=== PATIENT | male | born 1965 | race Caucasian/White ===

== ENCOUNTER 2024-01-14 23:07 | Emergency (ER) | payer BC, SELFPAY ==
[2024-01-14 23:23] VITALS: BP 159/110
[2024-01-14 23:30] VITALS: BMI 26.8
[2024-01-15] VITALS: BP 119/79
[2024-01-15 00:15] LABS: % Basophils 0.8 % (0-2); % Eosinophils 1.9 % (0-6); % Immature Granulocytes 0.3 % (0-0.5); % Lymphocytes 28.5 % (20.5-51.1); % Monocytes 10.5 % (1.7-9.3); Absolute Basophils 0.1 10^3/uL (0-0.2); Absolute Eosinophils 0.1 10^3/uL (0-0.7); Absolute Lymphocytes 1.8 10^3/uL (1.2-3.4); Absolute Monocytes 0.7 10^3/uL (0.1-0.6); Absolute Neutrophils 3.6 10^3/uL (1.4-6.5); Hematocrit 39.5 % (39.0-52.0); Hemoglobin 13.8 g/dL (13.0-18.0); Mean Corp Hgb Conc. 34.9 g/dL (33.0-37.0); Mean Corpuscular Hgb 32.1 pg (27.0-31.0); Mean Corpuscular Volume 91.9 fL (80.0-94.0); Mean Platelet Volume 9.8 fL (7.4-10.4); Nucleated Red Blood Cells % 0 % (-); Platelet Count 187 10^3/uL (130-400); Red Cell Dist. Width 13.1 % (11.5-14.5); White Blood Cell Count 6.2 10^3/uL (4.8-10.8)
[2024-01-15 00:29] LABS: ALT (SGPT) 31 U/L (0-50); AST (SGOT) 31 U/L (17-59); Alkaline Phosphatase 43 U/L (38-126); Blood Urea Nitrogen 31 mg/dl (9-20); Calcium 9.9 mg/dl (8.4-10.2); Carbon Dioxide 16 mmol/L (22-30); Chloride 108 mmol/L (98-107); Estimated Creatinine Clearance 56 ml/min; Glucose 113 mg/dl (70-99); Potassium 3.8 mmol/L (3.5-5.1); Sodium 143 mmol/L (135-145); Total Bilirubin 0.5 mg/dl (0.2-1.3); Total Protein 6.6 g/dl (6.3-8.2); eGFR 52.97
[2024-01-15] MEDS: CARDIZEM 20 MG IV (00:30)
--- NOTE | 2024-01-15 00:31 | ED.GENMED ---
History of Present Illness
<CAIRRA Frank - Last Filed: 01/15/24 02:37>
General
Chief Complaint: Heart Rate Problem
Source: patient
Exam Limitations: none
Time Seen by Provider: 01/15/24 00:17
Nursing documentation reviewed up to this point in time: agreed with
History of Present Illness
History of Present Illness:
Patient is a 58yo M w/ MH of a fib and HTN presents to ED w/ palpations x45 mins. Pt was woken up after 1 hr of sleep by chest pain and palpations. Report pressure in chest that is radiating down B/L arms. Rates /. Reports associated SOB and
nausea. Reports similar symptoms in past w/ previous a fib episodes. Has been well-controlled w/ flecainide for 5 yrs. Reports taking meds as directed. Denies any new activities in past week. Has URI about 2 weeks ago.
Past History
<CIARRA Frank - Last Filed: 01/15/24 02:37>
Past History
ED Past Medical History: HTN, Hypercholesterolemia, Renal failure (Status post renal transplant) and Other (Chronic kidney disease, diverticulitis)
ED Past Surgical History: Appendectomy and Other (Renal transplantation 2005)
Social History
Tobacco: Non-smoker
Alcohol: Daily (wine)
Drug: None
Personal:
Living: with family
Employment: Employed
Family History
Family History: Hypertension and Other (Father with diverticulitis)
Review of Systems
<CIARRA Frank - Last Filed: 01/15/24 02:37>
Review of Systems
Constitutional: Denies fever, fatigue or chills
EENT: Denies sore throat or runny nose
Respiratory: Reports trouble breathing; Denies cough
Cardiac: Reports chest pain and palpitations; Denies diaphoresis or syncope
ABD/GI: Reports nausea; Denies abdominal pain, vomiting, diarrhea or constipated
: Denies dysuria
Musculoskeletal: Denies joint pain, joint swelling, muscle pain, muscle stiffness, neck pain or back pain
Neurological: Denies dizzy, headache, weakness or numbness
Phy Exam
<Cinthia Justice [facility] Filed: 01/15/24 02:37>
General Physical Exam
General Presentation: moderate distress
General age: appears stated age
General Skin: warm and dry
General Habitus: normal
General Mental: alert
Eye Exam
Eye Exam: PERRL
Cardiovascular Exam
Cardiovascular Exam: no edema, no gallop, no murmur and irregularly irregular
Pulmonary Exam
Pulmonary Exam: lungs clear, no respiratory distress, no rales, no crackles, no rhonchi and no wheezing
Neurological Exam
Neurological Exam: alert, oriented x3 and speech normal
Course
<Cinthia Justice [facility] - Last Filed: 01/15/24 02:37>
Orders/Labs/Results
Orders:
Orders
01/14/24 23:08
Electrocardiogram (*1) Urgent
Reason for Study: Palpitations
EKG- Treatment ONCE
Complete Blood Count/With Diff Urgent
Comprehensive Metabolic Panel Urgent
01/15/24 00:27
Diltiazem HCl [Cardizem] 20 mg IV NOW STA
01/15/24 00:30
Diltiazem 125 mg/125 ml Nss [Cardizem] 125 mg in 125 ml IV PER PROTOCOL
Initial dose in mg/hr, then titrate:: 5
Titrate to keep:: Heart rate 80-100 bpm
Titrate by mg/hr:: 5 mg/hr
Frequency of titrations (minutes):: 15
Maximum dose in mg/hr:: 15
01/15/24 01:01
Propofol [Diprivan] 20 ml .ROUTE .STK-MED
01/15/24 01:34
ECG [Electrocardiogram (*1)] Urgent
Reason for Study: Atrial Fibrillation
01/15/24 01:35
EKG- Treatment ONCE
Abnormal Lab Results
01/15/24
00:10
RBC 4.30 L 10^6/uL
(4.70-6.10)
MCH 32.1 H pg
(27.0-31.0)
Absolute Monos (auto) 0.7 H 10^3/uL
(0.1-0.6)
Monocytes % 10.5 H %
(1.7-9.3)
Chloride 108 H mmol/L
(98-107)
Carbon Dioxide 16 L mmol/L
(22-30)
BUN 31 H mg/dl
(9-20)
Creatinine 1.5 H mg/dL
(0.7-1.3)
Glucose 113 H mg/dl
(70-99)
01/15/24 00:10
01/15/24 00:10
Vital Signs
Initial and Last Documented VS:
Initial Vital Signs
Temp Pulse Resp Pulse Ox
97.6 F 157 26 98
01/14/24 23:16 01/14/24 23:16 01/14/24 23:16 01/14/24 23:16
Last Documented Vital Signs
Temp Pulse Resp BP Pulse Ox
97.6 F 73 17 108/78 93
01/14/24 23:16 01/15/24 02:00 01/15/24 02:00 01/15/24 02:00 01/15/24 02:00
<Froylan Ochoa, DO - Last Filed: 01/15/24 02:00>
Orders/Labs/Results
Orders:
Orders
01/14/24 23:08
Electrocardiogram (*1) Urgent
Reason for Study: Palpitations
EKG- Treatment ONCE
Complete Blood Count/With Diff Urgent
Comprehensive Metabolic Panel Urgent
01/15/24 00:27
Diltiazem HCl [Cardizem] 20 mg IV NOW STA
01/15/24 00:30
Diltiazem 125 mg/125 ml Nss [Cardizem] 125 mg in 125 ml IV PER PROTOCOL
Initial dose in mg/hr, then titrate:: 5
Titrate to keep:: Heart rate 80-100 bpm
Titrate by mg/hr:: 5 mg/hr
Frequency of titrations (minutes):: 15
Maximum dose in mg/hr:: 15
01/15/24 01:01
Propofol [Diprivan] 20 ml .ROUTE .STK-MED
01/15/24 01:34
ECG [Electrocardiogram (*1)] Urgent
Reason for Study: Atrial Fibrillation
01/15/24 01:35
EKG- Treatment ONCE
Abnormal Lab Results
01/15/24
00:10
RBC 4.30 L 10^6/uL
(4.70-6.10)
MCH 32.1 H pg
(27.0-31.0)
Absolute Monos (auto) 0.7 H 10^3/uL
(0.1-0.6)
Monocytes % 10.5 H %
(1.7-9.3)
Chloride 108 H mmol/L
(98-107)
Carbon Dioxide 16 L mmol/L
(22-30)
BUN 31 H mg/dl
(9-20)
Creatinine 1.5 H mg/dL
(0.7-1.3)
Glucose 113 H mg/dl
(70-99)
01/15/24 00:10
01/15/24 00:10
Vital Signs
Initial and Last Documented VS:
Initial Vital Signs
Temp Pulse Resp Pulse Ox
97.6 F 157 26 98
01/14/24 23:16 01/14/24 23:16 01/14/24 23:16 01/14/24 23:16
Last Documented Vital Signs
Temp Pulse Resp BP Pulse Ox
97.6 F 73 17 108/78 93
01/14/24 23:16 01/15/24 02:00 01/15/24 02:00 01/15/24 02:00 01/15/24 02:00
<CIARRA Frank - Last Filed: 01/15/24 02:37>
MDM/Problems Addressed
Differential Diagnosis Includes:
a fib, ND, ACS
<CIARRA Frank - Last Filed: 01/15/24 02:37>
*Critical Care Note
Total Time (30-74mins, 75-104mins- exclusive of procedures): Not Applicable
<Froylan Ochoa DO - Last Filed: 01/15/24 02:00>
Update Note
Update Note:
Patient spontaneously cardioverted. He is in normal sinus rhythm and in no acute distress at this time. We did not perform any procedures. We did give him Cardizem. He did sign consent for procedure that we did not have to perform
ED Attending Note
<CIARRA Frank - Last Filed: 01/15/24 02:37>
-
Portions of this chart may have been created with voice recognition software.� Occasional wrong word or��sound alike� substitutions may have occurred due to the inherent limitations of voice recognition software.
<Froylan Ochoa DO - Last Filed: 01/15/24 02:00>
ED Attending Note
Patient seen and examined by attending physician: Yes
I performed the substantive portion of visit, reviewed & personally made and approve the management plan that is documented in note by myself or ANASTACIA.: Yes
ED Attending Note:
Pleasant 58-year-old male that presents with atrial fibrillation with rapid ventricular response. He does see Dr. Galindo for A-fib and has been on Eliquis. He has not missed any doses. He states about 45 minutes prior to his arrival in the
emergency department he felt palpitations and shortness of breath. He states that this feels like his atrial fibrillation. He has undergone synchronized cardioversion in the past. Patient was seen in conjunction with the PA student. I have
reviewed and agree with the history and treatment plan presented. On my independent physical exam, patient is awake, alert, and oriented x3. Heart is irregularly irregular. Lungs are clear to auscultation bilaterally. Skin is warm and dry.
Moves all 4 extremities. Patient is mentating appropriately.
EKG shows atrial fibrillation with rapid ventricular response. Ventricular rate is 135. No evidence of acute ischemia present.
Patient signed consent and agreed to synchronized cardioversion. He did have a course of Cardizem.
Discharge Plan
Departure
Patient Disposition: Home (Routine Discharge)
Date of Disposition: 01/15/24
Time of Disposition: 01:53
Patient with high blood pressure during this ER visit?: Yes
Condition: Good
Discharge Problem:
Atrial fibrillation with rapid ventricular response
Instructions: Atrial Fibrillation (DC), Palpitations (DC), BLOOD PRESSURE
Prescriptions:
No Action
mycophenolate sodium [Myfortic] 180 MG tablet,delayed release (DR/EC)
180 mg PO BID
labetalol 200 MG tablet
400 mg PO BID
prednisone 5 MG tablet
5 mg PO DAILY
terazosin 5 MG capsule
5 mg PO HS
Eliquis 5 MG tablet
5 mg PO BID Qty: 60 3RF
flecainide 50 MG tablet
50 mg PO HS
pravastatin 20 mg tablet
20 mg PO DAILY
tacrolimus 0.5 mg capsule
2 mg PO DAILY
tacrolimus 0.5 mg capsule
1.5 mg PO QPM
cefpodoxime 200 mg tablet
200 mg PO BID 10 Days Qty: 20 0RF
Referrals:
Que Friedman PA-C [Family Provider] -
Jovi Galindo MD [Active] -
Activity Restrictions/Additional Instructions:
It was a pleasure meeting you and taking part in your care. We hope for your continued healing and wellness.
Please read discharge instructions in their entirety. However, they are for general education and may not describe your exact diagnosis at discharge. Information on your ER visit and medical conditions were discussed with you along with appropriate
follow up information...
If indicated, please take your medications as instructed and indicated on discharge paperwork.
Please schedule a follow up appointment as directed. Call to schedule an appointment
Please return to the emergency department with ANY change in, persisting, or worsening of symptoms. If any of your symptoms do not improve, or persist, or become more severe within 6-12 hours, please return to the emergency department for further
care.
Please return to the emergency department if you develop a headache, neck pain/stiffness, fever greater than 100.4F, chest pain, shortness of breath, persistent nausea, vomiting, slurred speech, difficulty walking, numbness/tingling, weakness, signs
of infection or any other symptoms that are worrisome to you.
If you have any questions or concerns please do not hesitate to call the Hospital at or E-mail me directly at [email or web address]
Interventions
Interventions:
*Risk Screen - Suicide Last Done: 01/14/24 23:16
*General Assessment Last Done: 01/14/24 23:16
*Neglect/Abuse Screening Last Done: 01/14/24 23:16
*Nursing Disposition Last Done: 01/15/24 02:31
ED- Cardiac Assessment Last Done: 01/14/24 23:31
ED- Pulmonary Assessment Last Done: 01/14/24 23:31
Discharge Date and Time
Print Language: SAMI
[2024-01-15 00:34] VITALS: BP 85/59
[2024-01-15 00:37] VITALS: BP 95/72
[2024-01-15] MEDS: CARDIZEM 125 IV (00:37)
[2024-01-15 01:00] VITALS: BP 96/79
[2024-01-15 02:00] VITALS: BP 108/78
== END 2024-01-15 02:48 | disposition home or self-care (01) ==
LOC: EMR 23:07
PROVIDERS: EMERGENCY PHYSICIAN Student in an Organized Health Care Education/Training Program; FAMILY PHYSICIAN Physician Assistant Medical
DX: R00.2 Palpitations (principal); I48.91 Unspecified atrial fibrillation; I12.9 Hypertensive chronic kidney disease with stage 1 through stage 4 chronic kidney disease, or unspecified chronic kidney disease; N18.9 Chronic kidney disease, unspecified; E78.00 Pure hypercholesterolemia, unspecified; Z82.49 Family history of ischemic heart disease and other diseases of the circulatory system; Z83.79 Family history of other diseases of the digestive system; Z90.49 Acquired absence of other specified parts of digestive tract; Z94.0 Kidney transplant status
CPT/HCPCS: 99283; 96374; 96376; 80053; 85025; 93005